=== PATIENT | male | born 2000 | race African-American/Black ===

== ENCOUNTER 2023-05-08 05:36 | Emergency (ER) | payer BC, OTHER ==
[2023-05-08] MEDS ORDERED: Boostrix 0.5 ML (Tdap) VIAL (>/=7 yrs of age) ONE (06:13)
[2023-05-08] MEDS ORDERED: Ibuprofen 800 MG TAB ONE (06:14)
== END 2023-05-08 06:20 | disposition home or self-care (01) ==
LOC: CSHERS 05:36
DX: T25.121A Burn of first degree of right foot, initial encounter (principal); T31.0 Burns involving less than 10% of body surface; Z23 Encounter for immunization; X11.0XXA Contact with hot water in bath or tub, initial encounter
CPT/HCPCS: 90471; 90715